=== PATIENT | female | born 1995 | race Caucasian/White ===

== ENCOUNTER 2024-03-01 11:27 | Inpatient (IN) | payer OTHER ==
[~2024-03-01] VITALS: Ht 154.9 cm; Wt 68.0 kg
[~2024-03-01 11:27] MED LIST: PRENATAL 19 TAB1 TAB PO
[2024-03-01 12:11] LABS: URINE APPEARANCE Clear; URINE BILIRRUBIN Negative (NEGATIVE); URINE BLOOD Negative; URINE COLOR Yellow; URINE GLUCOSE Negative (NEGATIVE); URINE KETONE Negative (NEGATIVE); URINE LEUKOCYTE Negative; URINE NITRATE Negative; URINE PROTEIN Negative (NEGATIVE); URINE UROBILINOGEN 0.2 E.U./dl
[2024-03-01 12:12] LABS: HEMATOCRIT 36.8 % (36.0-45.00); HEMOGLOBIN 12.3 g/dL (12.0-15.00); MEAN CELL VOLUME 86.9 fL (80.00-100.00); MEAN CORPUSCULAR HEMOGLOBIN 29.2 pg (27.00-32.0); MEAN CORPUSCULAR HGB CONC 33.5 g/dl (32.0-36.0); PLATELET COUNT 220 K/uL (150-450); RED BLOOD COUNT 4.23 M/uL (4.00-6.00); RED CELL DISTRIBUTION WIDTH 14.7 % (11.5-14.5); URINE BACTERIA 153.6 uL (0.0-1933); URINE EPITHELIAL CELLS 3.8 uL (0.0-38.8); URINE WBC 4.1 uL (0.0-23.2)
[2024-03-01 12:17] LABS: URINE CAST 0.15 uL (0.0-1.40)
[2024-03-01 12:54] LABS: INR 0.94; PARTIAL THROMBOPLASTIN TIME 27.8 SECONDS (22.0-34.0); PROTHROMBIN TIME 9.9 SECONDS (9.0-11.5)
[2024-03-02] MEDS ORDERED: CEFAZOLIN SODIUM 1,000 MG VIAL ONE ×2 (10:00→11:25)
[2024-03-02] MEDS ORDERED: ERYTHROMYCIN BASE 1 GM TUBE OP ONE ×2 (11:24→13:45)
[2024-03-02] MEDS ORDERED: OXYTOCIN 10 UNITS/ML VIAL ONE (11:24)
[2024-03-02] MEDS ORDERED: MEPERIDINE HCL/PF 50 MG/ML VIAL IM PRN (13:00)
[2024-03-02] MEDS ORDERED: PROMETHAZINE HCL 50 MG/ML AMPUL IM PRN (13:00)
[2024-03-02] MEDS ORDERED: RINGERS SOLUTION,LACTATED 1,000 ML IV SCH (13:00)
[2024-03-02] MEDS ORDERED: CEFAZOLIN SODIUM 1,000 MG VIAL IV ONE (13:45)
[2024-03-02] MEDS ORDERED: OXYTOCIN 10 UNITS/ML VIAL IV ONE (13:45)
[2024-03-02] MEDS ORDERED: CEFAZOLIN SODIUM 1,000 MG VIAL IV SCH (14:00)
[2024-03-02] MEDS ORDERED: PROMETHAZINE HCL 50 MG/ML AMPUL IM ONE (17:05)
[2024-03-03 02:21] LABS: HEMATOCRIT 37.5 % (36.0-45.00); HEMOGLOBIN 12.8 g/dL (12.0-15.00); MEAN CELL VOLUME 87.7 fL (80.00-100.00); MEAN CORPUSCULAR HGB CONC 34.2 g/dl (32.0-36.0); PLATELET COUNT 201 K/uL (150-450); RED BLOOD COUNT 4.27 M/uL (4.00-6.00); RED CELL DISTRIBUTION WIDTH 15.2 % (11.5-14.5)
[2024-03-03] MEDS ORDERED: OxyCODONE HCL/APAP UD (PERCOCET) PO PRN (11:15)
[2024-03-05] MEDS ORDERED: IBUPROFEN800 MG PO (07:48)
== END 2024-03-05 14:02 | disposition home or self-care (01) | DRG 788 ==
LOC: O/R 03-02 08:20 → OB/GYN 03-02 13:30
PROVIDERS: ADMIT Specialist; ATTEND Specialist
PROC: 4A1HXCZ Monitoring of Products of Conception, Cardiac Rate, External Approach (ICD-10-PCS; 2024-03-02)
PROC: 10D00Z1 Extraction of Products of Conception, Low, Open Approach (ICD-10-PCS; principal; 2024-03-02 13:30)
DX: O32.1XX0 Maternal care for breech presentation, not applicable or unspecified (principal); Z3A.38 38 weeks gestation of pregnancy; Z37.0 Single live birth; Z20.822 Contact with and (suspected) exposure to COVID-19

== ENCOUNTER 2024-05-22 22:39 | Emergency (ER) | payer OTHER ==
[~2024-05-22] VITALS: Ht 154.9 cm; Wt 59.0 kg
[~2024-05-22 22:39] MED LIST changes: +IBUPROFEN800 MG PO
[2024-05-22] MEDS ORDERED: METHYLPREDNISOLONE SOD SUCC 40 MG VIAL IM STA (23:54)
[2024-05-23] MEDS ORDERED: ALLERGY EYE DRO15 ML OP (00:07)
[2024-05-23] MEDS ORDERED: ZYRTEC10 MG PO (00:07)
== END 2024-05-23 00:23 | disposition home or self-care (01) ==
LOC: ER 22:41
DX: T78.40XA Allergy, unspecified, initial encounter (principal); H10.11 Acute atopic conjunctivitis, right eye